=== PATIENT | female | born 2005 | race American Indian/Alaskan Native ===

== ENCOUNTER 2025-09-24 20:33 | Emergency (ER) | payer MEDICAID ==
[2025-09-24] MEDS: Sodium Chloride 0.9% 10 ML Syringe FLUSH PRN (21:10)
[2025-09-24 21:22] LABS: MEAN PLATELET VOLUME 10.3 fL (7.1-12.4); PLATELET COUNT,PLT 181 x10(3)uL (151-488); RED BLOOD CELL COUNT 4.25 x10(6)uL (3.60-5.20); RED CELL DISTRIBUTION WIDTH 13.2 % (12.3-16.5); WHITE BLOOD CELL COUNT,WBC 17.7 x10-3/uL (3.0-10.3)
[2025-09-24 21:26] LABS: BLOOD UREA NITROGEN,BUN 5 mg/dL (7-18); CARBON DIOXIDE,CO2 21 mmol/L (21-32); CHLORIDE,CL 103 mmol/L (100-110); CREATININE 0.4 mg/dL (0.55-1.02); EST CRCL DRUG DOSING (CG) 218.17 mL/min; ESTIMATED GFR 145 mL/min (>60); GLUCOSE RANDOM 94 mg/dL (80-116); POTASSIUM,K 3.7 mmol/L (3.5-5.3); SODIUM,NA 138 mmol/L (135-145)
[2025-09-24 21:31] LABS: A/G RATIO 0.7; ALANINE AMINOTRANSFERASE,ALT 21 U/L (12-36); ASPARTATE AMNIOTRANSFERASE,AST 19 IU/L (5-25); BILIRUBIN TOTAL 0.8 mg/dL (0.1-1.3); PROTEIN TOTAL,TP 6.9 g/dL (6.0-8.0)
[2025-09-24 21:40] LABS: BAND PERCENT MAN 2 % (0-6); LYMPHOCYTES PERCENT MAN 3 % (13-37); MONOCYTES PERCENT MAN 3 % (4-12); SEG NEUTROPHILS PERCENT MAN 92 % (46-82)
[2025-09-24] MEDS: Ondansetron 4 MG/2 ML SDV IVPUSH ONE (21:58)
[2025-09-24 22:12] LABS: GLUCOSE,URINE NORMAL (NORMAL); OCCULT BLOOD,URINE NEGATIVE (NEGATIVE)
[2025-09-24 22:15] LABS: APPEARANCE,URINE CLEAR (CLEAR); SQUAMOUS EPITHELIAL CELLS,UR FEW (NS,R,O)
== END 2025-09-24 22:53 | disposition home or self-care (01) ==
LOC: FB.ED 20:33
DX: O26.892 Other specified pregnancy related conditions, second trimester (principal); R10.20 Pelvic and perineal pain unspecified side; E86.0 Dehydration; Z3A.27 27 weeks gestation of pregnancy
CPT/HCPCS: 36415; 80053; 81001; 83690; 85025; 96361; 96374; 99283; 99284; A9270; J2405; J7030